=== PATIENT | female | born 1985 | race African-American/Black ===

== ENCOUNTER 2022-03-10 23:56 | Emergency (ER) | payer BC ==
[~2022-03-10] VITALS: Ht 157.5 cm; Wt 82.1 kg
[2022-03-11] MEDS ORDERED: FAMOTIDINE 20 MG/2 ML VIAL IV ONE ×2 (00:30→00:51)
[2022-03-11] MEDS ORDERED: ACETAMINOPHEN500 MG PO (00:52)
[2022-03-11] MEDS ORDERED: OMEPRAZOLE40 MG PO (00:52)
[2022-03-11 01:19] VITALS: BP 104/72
== END 2022-03-11 01:19 | disposition home or self-care (01) ==
LOC: FSED 03-11 00:18
DX: R07.9 Chest pain, unspecified (principal); I10 Essential (primary) hypertension; K21.9 Gastro-esophageal reflux disease without esophagitis; F17.210 Nicotine dependence, cigarettes, uncomplicated
CPT/HCPCS: 71046; 80053; 81003; 82553; 84484; 85025; 85379; 93005; 96374; 99284